=== PATIENT | female | born 2000 | race African-American/Black ===

== ENCOUNTER 2021-03-26 09:22 | Emergency (ER) | payer OTHER ==
[~2021-03-26] VITALS: Ht 172.7 cm; Wt 74.8 kg
[2021-03-26 09:27] VITALS: BP 134/80
[2021-03-26] MEDS ORDERED: IBUP-1957 PO (10:29)
== END 2021-03-26 10:41 | disposition home or self-care (01) ==
LOC: ER 09:24
DX: M25.571 Pain in right ankle and joints of right foot (principal); R22.41 Localized swelling, mass and lump, right lower limb
CPT/HCPCS: 73610-TC